=== PATIENT | female | born 1940 | race Caucasian/White ===

== ENCOUNTER → 2017-02-07 | Outpatient (CLI) | payer MEDICARE, OTHER | END | disposition home or self-care (01) | LOC: CFH 11:17 | PROVIDERS: ATTEND Family Medicine | DX: Z12.31 Encounter for screening mammogram for malignant neoplasm of breast (principal) | CPT/HCPCS: G0202 ==

== ENCOUNTER 2018-09-07 11:52 | Outpatient (CLI) | payer MEDICARE, OTHER | END 2018-09-07 23:59 | disposition home or self-care (01) | LOC: CFH 11:52 | PROVIDERS: ATTEND Family Medicine | DX: Z12.31 Encounter for screening mammogram for malignant neoplasm of breast (principal); Z80.3 Family history of malignant neoplasm of breast | CPT/HCPCS: 77063; 77067 ==

== ENCOUNTER 2021-03-26 06:09 | Day surgery (SDC) | payer MEDICARE ==
[~2021-03-26] VITALS: Ht 160 cm; Wt 42.4 kg
[2021-03-26 07:15] VITALS: BP 157/75
[2021-03-26 07:50] LABS: INTERNATIONAL NORMALIZED RATIO 1.09 (0.93-1.1); PROTHROMBIN TIME 11.6 Seconds (9.6-11.5)
[2021-03-26] MEDS ORDERED: MIDAZOLAM 1 MG/ML, 5ML ONE (07:58)
[2021-03-26] MEDS ORDERED: FENTANYL PF 100 MCG/2ML ONE (07:58)
[2021-03-26] MEDS ORDERED: FLUMAZENIL 0.1 MG/1 ML, 5ML ONE (07:59)
[2021-03-26] MEDS ORDERED: NALOXONE 1 MG/ML, 2ML ONE (07:59)
[2021-03-26] MEDS ORDERED: SODIUM CHLORIDE 0.9% 1,000 ML IV SCH (08:00)
== END 2021-03-26 09:45 | disposition home or self-care (01) ==
LOC: OUT 06:09 → EDSTATUS 08:00 → OUT 09:45
PROVIDERS: ATTEND Internal Medicine Nephrology
DX: I12.9 Hypertensive chronic kidney disease with stage 1 through stage 4 chronic kidney disease, or unspecified chronic kidney disease (principal); N18.4 Chronic kidney disease, stage 4 (severe); N28.1 Cyst of kidney, acquired; D63.1 Anemia in chronic kidney disease; E78.5 Hyperlipidemia, unspecified; K21.9 Gastro-esophageal reflux disease without esophagitis; M81.0 Age-related osteoporosis without current pathological fracture; Z79.01 Long term (current) use of anticoagulants; Z79.891 Long term (current) use of opiate analgesic; Z79.899 Other long term (current) drug therapy; Z86.718 Personal history of other venous thrombosis and embolism; Z87.440 Personal history of urinary (tract) infections; Z90.5 Acquired absence of kidney
CPT/HCPCS: 36415; 50200; 77012; 85610; 88300; 99156; J2250; J3010; 32408; 99157; J2310